=== PATIENT | male | born 1990 | race Hispanic/Latino ===

== ENCOUNTER 2025-08-19 07:28 | Emergency (ER) | payer BC, OTHER ==
[2025-08-19] MEDS ORDERED: Fluorescein Opthalmic Strip ONE (07:40)
[2025-08-19] MEDS ORDERED: Tetracaine 0.5% PF 4 ML BOT ONE (07:40)
== END 2025-08-19 08:32 | disposition home or self-care (01) ==
LOC: BURERS 07:28
DX: T15.01XA Foreign body in cornea, right eye, initial encounter (principal); H16.133 Photokeratitis, bilateral; W44.8XXA Other foreign body entering into or through a natural orifice, initial encounter; Y93.89 Activity, other specified